=== PATIENT | male | born 1990 | race Caucasian/White ===

== ENCOUNTER → 2019-03-15 | Outpatient (CLI) | payer BC ==
[~2019-03-15] MED LIST: NORCO 325 MG-51 TAB PO
== END ==
LOC: COL.RAD 08:15
DX: R10.11 Right upper quadrant pain (principal); R19.4 Change in bowel habit; R14.0 Abdominal distension (gaseous)

== ENCOUNTER → 2019-06-04 | Outpatient (CLI) | payer BC | LOC: COL.RAD 07:11 | DX: K82.8 Other specified diseases of gallbladder (principal) | CPT/HCPCS: A9537; J2805 ==